=== PATIENT | male | born 1950 | race Caucasian/White ===

== ENCOUNTER 2017-04-06 21:33 | Emergency (ER) | payer BC, OTHER ==
[~2017-04-06] VITALS: Ht 177.8 cm; Wt 96.9 kg
[~2017-04-06 21:33] MED LIST: ASPI325T PO; HYDR-3533 PO; HYOS0.129 SL; LISI10TA PO; LOVA40TA PO; METR-1 PO; NIAC500T34 PO; PROT40TA PO; ZOFR4TAB3 SL
[2017-04-06 21:35] VITALS: BP 132/84; PULSE 83; RESP 18; TEMP 97.9
[2017-04-06] MEDS ORDERED: SODIUM CHLORIDE 0.9% FLUSH 10 ML FLUSH IV FLUSH PRN (22:15)
[2017-04-06] MEDS ORDERED: KETOROLAC TROMETHAMINE 30 MG/ML (IVP) VIAL IVP ONE (22:15)
[2017-04-06 22:29] VITALS: RESP 18; O2SAT 95
[2017-04-06 22:30] VITALS: BP 122/77; PULSE 76; RESP 18; O2SAT 95
--- NOTE | 2017-04-06 22:30 | PD ---
HPI Chief Complaint: Abdominal Pain Time Seen by Provider: 22:05 Travel History International Travel<30 days: No Contact w/Intl Traveler<30days: No Traveled to known affect area: No History of Present Illness HPI Patient 66-year-old male presents emergency department for evaluation of right lower quadrant or groin pain. Patient has a significant history of recently diagnosed with prostate cancer. He is going to have a consultation with [facility] for surgical options. Is not on chemotherapy as of yet. He denies any nausea vomiting diarrhea constipation change in urinary habits or lumps. Patient states that he does have a history of an inguinal repair to the same area. He states that his pain goes away when he stands up and is worse when he lies down flat. He cannot think of any traumatic injury. States pain is been going on since yesterday and waxing and waning. PFSH Past Medical History High Cholesterol: Yes Diminished Hearing: No GERD: Yes Hiatal Hernia: Yes Hypertension: Yes Inguinal Hernia: Yes Influenza Vaccination: Yes Past Surgical History Abdominal Surgery: Yes (LEFT INGUINAL HERNIA REPAIR) Social History Alcohol Use: No Tobacco Use: No (1980S) Substance Use: No Allergies-Medications (Allergen,Severity, Reaction): Coded Allergies: No Known Allergies (Unverified , 04/06/17) Reported Meds & Prescriptions Reported Meds & Active Scripts Active Flexeril (Cyclobenzaprine HCl) 10 Mg Tab 10 Mg PO TID Ultram (Tramadol HCl) 50 Mg Tab 50 Mg PO Q6H PRN Levsin (Hyoscyamine Sulfate) 0.125 Mg Tab 0.125 Mg SL Q6H PRN FOR ABDOMINAL CRAMPS Lortab 5 mg/325 mg (Hydrocodone/Acetaminophen 5 mg/325 mg) 1 Tab 1 Tab PO Q6H PRN Zofran ODT (Ondansetron HCl) 4 Mg Tab 4 Mg SL Q6H PRN FOR NAUSEA/VOMITING Flagyl (Metronidazole) 500 Mg Tab 500 Mg PO QID Reported Protonix (Pantoprazole Sodium) 40 Mg Tabdr 40 Mg PO DAILY Lovastatin 40 Mg Tab 40 Mg PO EVERY OTHER DAY Niacin 500 Mg Tab 500 Mg PO DAILY Aspirin 325 Mg Tab (Aspirin) 325 Mg Tab 325 Mg PO DAILY Lisinopril/Hctz 10 mg/12.5 mg 10 mg/12.5 mg Tab 1 Tab PO DAILY Review of Systems Except as stated in HPI: all other systems reviewed are Neg Physical Exam Narrative GENERAL: Well-developed well-nourished, quite pleasant in no apparent distress SKIN: No rash no wound. HEAD: Atraumatic. Normocephalic. EYES: Pupils equal and round. No scleral icterus. No injection or drainage. ENT: No nasal bleeding or discharge. Mucous membranes pink and moist. NECK: Trachea midline. No JVD. CARDIOVASCULAR: Regular rate and rhythm. No murmur appreciated. RESPIRATORY: No accessory muscle use. Clear to auscultation. Breath sounds equal bilaterally. GASTROINTESTINAL: Abdomen soft, non-tender, nondistended. Hepatic and splenic margins not palpable. No hernia palpable. No tenderness in McBurney's point, no rebound no percussive tenderness. Abdomen is benign. MUSCULOSKELETAL: No obvious deformities. No clubbing. No cyanosis. No edema. NEUROLOGICAL: Awake and alert. No obvious cranial nerve deficits. Motor grossly within normal limits. Normal speech. PSYCHIATRIC: Appropriate mood and affect; insight and judgment normal. Data Data Last Documented VS Vital Signs Date Time Temp Pulse Resp B/P Pulse Ox O2 Delivery O2 Flow Rate FiO2 04/06/17 23:33 18 04/06/17 22:30 76 122/77 95 Room Air 04/06/17 21:35 97.9 Orders Complete Blood Count With Diff (04/06/17 22:05) Comprehensive Metabolic Panel (04/06/17 22:05) Urinalysis - C+S If Indicated (04/06/17 22:05) Iv Access Insert/Monitor (04/06/17 22:05) Oximetry (04/06/17 22:05) Sodium Chloride 0.9% Flush (Ns Flush) (04/06/17 22:15) Ketorolac Inj (Toradol Inj) (04/06/17 22:15) Labs Laboratory Tests Test 04/06/17 04/06/17 22:21 22:28 Urine Color YELLOW Urine Turbidity CLEAR Urine pH 6.0 Urine Specific [place] 1.026 Urine Protein TRACE mg/dL Urine Glucose (UA) NEG mg/dL Urine Ketones NEG mg/dL Urine Occult Blood NEG Urine Nitrite NEG Urine Bilirubin NEG Urine Leukocyte Esterase NEG Urine RBC 0-3 /hpf Urine WBC 0-2 /hpf Urine Squamous Epithelial 0-5 /hpf Cells Urine Mucus FEW /lpf Microscopic Urinalysis Comment CULT NOT INDICATED White Blood Count 7.4 TH/MM3 Red Blood Count 5.29 MIL/MM3 Hemoglobin 15.7 GM/DL Hematocrit 46.6 % Mean Corpuscular Volume 88.2 FL Mean Corpuscular Hemoglobin 29.7 PG Mean Corpuscular Hemoglobin 33.7 % Concent Red Cell Distribution Width 12.2 % Platelet Count 158 TH/MM3 Mean Platelet Volume 9.4 FL Neutrophils (%) (Auto) 65.1 % Lymphocytes (%) (Auto) 22.8 % Monocytes (%) (Auto) 7.9 % Eosinophils (%) (Auto) 3.1 % Basophils (%) (Auto) 1.1 % Neutrophils # (Auto) 4.8 TH/MM3 Lymphocytes # (Auto) 1.7 TH/MM3 Monocytes # (Auto) 0.6 TH/MM3 Eosinophils # (Auto) 0.2 TH/MM3 Basophils # (Auto) 0.1 TH/MM3 CBC Comment DIFF FINAL Differential Comment Sodium Level 141 MEQ/L Potassium Level 3.5 MEQ/L Chloride Level 103 MEQ/L Carbon Dioxide Level 28.6 MEQ/L Anion Gap 9 MEQ/L Blood Urea Nitrogen 17 MG/DL Creatinine 1.40 MG/DL Estimat Glomerular Filtration 51 ML/MIN Rate Random Glucose 122 MG/DL Calcium Level 8.9 MG/DL Total Bilirubin 0.5 MG/DL Aspartate Amino Transf 27 U/L (AST/SGOT) Alanine Aminotransferase 36 U/L (ALT/SGPT) Alkaline Phosphatase 45 U/L Total Protein 7.1 GM/DL Albumin 4.2 GM/DL [facility] Medical Decision Making Medical Screen Exam Complete: Yes Emergency Medical Condition: Yes Differential Diagnosis Hernia, groin strain, groin sprain, appendicitis seems less likely, urinary tract infection, cancer pain seems unlikely Narrative Course Patient roomed in the emergency department, he appears well in no obvious distress. His abdomen exam is benign. He has no other GI symptoms: No nausea vomiting diarrhea constipation or loss of appetite. Recent history of diagnosis of prostate cancer and is supposed to have surgery sometime in the near future [facility]. Basic labs were getting CBC and CMP are reassuring. His creatinine is 1.4 and review of his right labs show that he does have some variability in his creatinine in the past. His highest creatinine the past was 1.4. I reviewed his CAT scan from February of this year at [facility] which did show that the bladder was partially deviated towards the right and may be encroaching on the inguinal canal. This may be a cause of his pain however the acute nature of his pain was suggest another cause. Muscle strain seems more likely. I think given his recent CAT scan his well appearance is no indication for repeat CAT scan at this time. I've discussed symptomatic management of his pain and need for follow-up with his primary care physician as well as his urologist and the [facility] as above. He is agreeable to this course of action. Diagnosis Primary Impression: RLQ abdominal pain Med/Other Pt SpecificInfo: Prescription(s) given Scripts Cyclobenzaprine (Flexeril)10 Mg Tab10 Mg PO TID #20 TAB Ref 0 Prov:Gabriel Akers MD 04/06/17 Tramadol (Ultram)50 Mg Tab50 Mg PO Q6H PRN (PAIN) #15 TAB Ref 0 Prov:Gabriel Akers MD 04/06/17 Disposition: 01 DISCHARGE HOME Condition: Stable Gabriel Akers MD April 06, 2017 22:30
[2017-04-06 22:43] LABS: AUTOMATED NEUTROPHIL # 4.8 TH/MM3 (1.8-7.7); BASOPHIL # 0.1 TH/MM3 (0-0.2); BASOPHIL % 1.1 % (0.0-2.0); EOSINOPHIL # 0.2 TH/MM3 (0-0.4); EOSINOPHIL % 3.1 % (0.0-4.0); HEMATOCRIT 46.6 % (39.0-51.0); HEMO FLAGS DIFF FINAL; LYMPH % 22.8 % (9.0-44.0); LYMPHOCYTE # 1.7 TH/MM3 (1.0-4.8); MEAN CELL VOLUME 88.2 FL (80.0-100.0); MEAN CORPUSCULAR HEMOGLOBIN 29.7 PG (27.0-34.0); MEAN CORPUSCULAR HGB CONC 33.7 % (32.0-36.0); MONO % 7.9 % (0.0-8.0); NEUT % 65.1 % (16.0-70.0); PLATELET COUNT 158 TH/MM3 (150-450); RED BLOOD COUNT 5.29 MIL/MM3 (4.50-5.90); RED CELL DISTRIBUTION WIDTH 12.2 % (11.6-17.2); WHITE BLOOD COUNT 7.4 TH/MM3 (4.0-11.0)
[2017-04-06 22:44] LABS: BLOOD, URINE NEG (NEG); GLUCOSE,URINE NEG (NEG); KETONE, URINE NEG (NEG); NITRITE,URINE NEG (NEG)
[2017-04-06 22:48] LABS: URINE COLOR YELLOW (YELLW/STRAW)
[2017-04-06 22:49] LABS: COMMENT (UR) CULT NOT INDICATED; CULTURE IF INDICATED CULT NOT INDICATED; MUCUS URINE FEW /lpf (OCC); RBC, URINE 0-3 /hpf (0-3); SQUAMOUS EPITHELIAL CELL URINE 0-5 /hpf (0-5); WBC, URINE 0-2 /hpf (0-5)
[2017-04-06 22:50] LABS: CHLORIDE 103 MEQ/L (98-107); POTASSIUM 3.5 MEQ/L (3.5-5.1); SODIUM (NA) 141 MEQ/L (136-145)
[2017-04-06 22:53] LABS: ANION GAP 9 MEQ/L (5-15); BICARBONATE 28.6 MEQ/L (21.0-32.0)
[2017-04-06 22:54] LABS: BLOOD UREA NITROGEN 17 MG/DL (7-18)
[2017-04-06 22:56] LABS: ALT (GPT) 36 U/L (12-78); AST (GOT) 27 U/L (15-37)
[2017-04-06 22:57] LABS: GLOMERULAR FILTRATION RATE 51 ML/MIN (>89)
[2017-04-06 22:58] LABS: TOTAL BILIRUBIN ADULT 0.5 MG/DL (0.2-1.0)
[2017-04-06 22:59] LABS: ALKALINE PHOSPHATASE 45 U/L (45-117)
[2017-04-06] MEDS ORDERED: ULTR50TA5 PO (23:10)
[2017-04-06] MEDS ORDERED: CYCL1TAB29 PO (23:10)
[2017-04-06 23:33] VITALS: RESP 18
== END 2017-04-06 23:32 | disposition home or self-care (01) ==
LOC: PHED 21:33
DX: R10.31 Right lower quadrant pain (principal); C61 Malignant neoplasm of prostate; E78.00 Pure hypercholesterolemia, unspecified; K21.9 Gastro-esophageal reflux disease without esophagitis; I10 Essential (primary) hypertension; Z79.82 Long term (current) use of aspirin; Z79.899 Other long term (current) drug therapy
CPT/HCPCS: 80053; 81001; 85025; 96374; 99284; J1885